=== PATIENT | female | born 1995 | race Two or more races ===

== ENCOUNTER 2017-08-05 12:19 | Emergency (ER) | payer MEDICAID ==
[~2017-08-05] VITALS: Ht 162.6 cm; Wt 54.0 kg
[2017-08-05 12:26] VITALS: BP 124/83
[2017-08-05 12:42] LABS: APPEARANCE,URINE Cloudy (CLEAR); BILIRUBIN,URINE Negative (NEGATIVE); BLOOD, URINE Large Ery/uL (NEGATIVE); KETONES,URINE Trace (NEGATIVE); LEUKOCYTE ESTERASE ,URINE Small (NEGATIVE); NITRITE, URINE Positive (NEGATIVE); PH,URINE 5.5 (5.0-8.0); PROTEIN,URINE >=300 mg/dl (NEGATIVE); UGLUCOSE Negative (NEGATIVE); UROBILINOGEN,URINE 0.2 EU/dL (0.2)
[2017-08-05 12:48] LABS: COLOR,URINE DARK YELLOW (YELLOW)
[2017-08-05 13:33] LABS: BACTERIA,URINE Many /HPF (None Seen); RBC,URINE TOO NUMEROUS TO COUN /HPF (0-2); SQUAMOUS EPITHELIAL CELL,UR Moderate /HPF (None Seen)
[2017-08-05] MEDS ORDERED: TDAP [DIPH/PERTUSSIS/TET] 0.5 ML VIAL IM ONE (18:11)
[2017-08-05] MEDS ORDERED: IBUPROFEN 600 MG TABLET PO ONE (18:11)
== END 2017-08-05 13:00 | disposition home or self-care (01) ==
LOC: ER 12:22
DX: N39.0 Urinary tract infection, site not specified (principal)
CPT/HCPCS: 81000-TC; 84703-TC; 87086-TC; 87186-TC; 90715; A4606; Z7610

== ENCOUNTER 2017-10-17 21:05 | Emergency (ER) | payer MEDICAID ==
[~2017-10-17] VITALS: Ht 160 cm; Wt 52.6 kg
[2017-10-17 21:25] VITALS: BP 127/72
== END 2017-10-17 23:06 | disposition home or self-care (01) ==
LOC: ER 21:06
DX: F41.0 Panic disorder [episodic paroxysmal anxiety] (principal); Y04.0XXA Assault by unarmed brawl or fight, initial encounter; Y93.89 Activity, other specified; Y92.511 Restaurant or cafe as the place of occurrence of the external cause; Y99.8 Other external cause status
CPT/HCPCS: 99284; A4606; Z7610

== ENCOUNTER 2018-09-25 11:05 | Emergency (ER) | payer MEDICAID ==
[~2018-09-25] VITALS: Ht 162.6 cm; Wt 49.4 kg
[2018-09-25 11:05] VITALS: BP 127/85
== END 2018-09-25 11:50 | disposition home or self-care (01) ==
LOC: ER 11:05
DX: L03.011 Cellulitis of right finger (principal)

== ENCOUNTER 2019-04-03 20:17 | Emergency (ER) | payer MEDICAID ==
[~2019-04-03] VITALS: Ht 162.6 cm; Wt 49.0 kg
[2019-04-03 20:29] VITALS: BP 141/72
== END 2019-04-03 21:16 | disposition home or self-care (01) ==
LOC: ER 20:17
DX: L70.9 Acne, unspecified (principal); K13.0 Diseases of lips

== ENCOUNTER 2022-09-18 05:28 | Emergency (ER) | payer MEDICAID ==
[~2022-09-18] VITALS: Ht 162.6 cm; Wt 54.4 kg
[2022-09-18 05:43] VITALS: BP 127/92
--- NOTE | 2022-09-18 05:43 | NUR ---
bib self from home c/o sorethroat x 3 days
[2022-09-18] MEDS ORDERED: BENZ1LOZ58 PO (05:46)
[2022-09-18] MEDS ORDERED: DIPH50CA4 PO (05:46)
[2022-09-18] MEDS ORDERED: PENI500T PO (05:46)
[2022-09-18] MEDS ORDERED: ACETAMINOPHEN ES 500 MG TABLET ONE (05:49)
--- NOTE | 2022-09-18 05:57 | NUR ---
Patient discharged to home in stable condition. RX Written and verbal after care instructions given. Patient verbalizes understanding of instruction.
--- NOTE | 2022-09-18 05:57 | NUR ---
COVID ANTIGEN AND STEP SWAB COLLECTED AND SENT TO LAB
[2022-09-18] MEDS ORDERED: ACETAMINOPHEN 325 MG TABLET PO ONE (06:00)
== END 2022-09-18 05:59 | disposition home or self-care (01) ==
LOC: ER 05:30
DX: U07.1 COVID-19 (principal); J02.9 Acute pharyngitis, unspecified; F41.9 Anxiety disorder, unspecified; Z79.899 Other long term (current) drug therapy
CPT/HCPCS: 99283; 87426; 87880; C9803; 86403-TC

== ENCOUNTER 2022-12-15 11:16 | Emergency (ER) | payer MEDICAID ==
[~2022-12-15] VITALS: Ht 162.6 cm; Wt 59.0 kg
[~2022-12-15 11:16] MED LIST: BENZ1LOZ58 PO; DIPH50CA4 PO; PENI500T PO
[2022-12-15 11:32] VITALS: BP 146/91; TEMP 99.2
--- NOTE | 2022-12-15 11:35 | NUR ---
sore throat x 4days,nausea this am walked to bed 19
--- NOTE | 2022-12-15 12:51 | NUR ---
covid swab done, sent to lab
[2022-12-15] MEDS ORDERED: LOPE2CAP PO (13:51)
[2022-12-15 13:57] VITALS: O2SAT 100
== END 2022-12-15 13:58 | disposition home or self-care (01) ==
LOC: ER 12:26
DX: B34.9 Viral infection, unspecified (principal); F41.9 Anxiety disorder, unspecified; Z79.899 Other long term (current) drug therapy; Z20.822 Contact with and (suspected) exposure to COVID-19
CPT/HCPCS: 99283; 87426; C9803